=== PATIENT | male | born 1935 | race Caucasian/White ===

== ENCOUNTER 2021-07-25 12:35 | Outpatient (CLI) | payer OTHER, MEDICARE ==
[2021-07-25] MEDS ORDERED: Iopamidol 370 76% 100 ML VIAL ONE (15:18)
== END 2021-07-25 12:36 | disposition home or self-care (01) ==
LOC: CSHCT 12:35
DX: I26.99 Other pulmonary embolism without acute cor pulmonale (principal); I71.2 Thoracic aortic aneurysm, without rupture; J98.4 Other disorders of lung
CPT/HCPCS: 71275; 82565; Q9967

== ENCOUNTER 2021-09-27 15:35 | Outpatient (CLI) | payer OTHER, MEDICARE | END 2021-09-27 15:36 | disposition home or self-care (01) | LOC: CSHRAD 15:35 | PROVIDERS: ATTEND Family Medicine | DX: R05.9 Cough, unspecified (principal) | CPT/HCPCS: 71046 ==

== ENCOUNTER 2022-05-18 16:04 | Emergency (ER) | payer MEDICARE, OTHER ==
[~2022-05-18 16:04] MED LIST: Iopamidol 370 76% 100 ML VIAL ONE
[2022-05-18 16:53] LABS: #Eosinphils 0.3 10x3/uL (0.0-0.5); #Monocytes 0.4 10x3/uL (0.0-1.1); #Neutrophils 7.2 10x3/uL (1.5-8.4); %Basophils 0.4 % (0.0-2.0); %Eosinophils 2.8 % (0.0-6.0); %Lymphocytes 9.4 % (18.0-47.0); %Monocytes 4.7 % (0.0-10.0); %Neutrophils 80.4 % (40.0-75.0); Hemoglobin 11.4 g/dL (13.5-17.5); Mean Corpuscular Hemoglobin 35.6 pg (27.0-33.0); Mean Corpuscular Volume 104.7 fl (81.2-95.1); Mean Platelet Volume 9.3 fl (7.4-10.4); Platelet Count 304 10x3/uL (150-450); RBC Distribution Width 12.5 % (11.5-14.5)
[2022-05-18 17:15] LABS: ALT (SGPT) 22 U/L (8-55); AST (SGOT) 23 U/L (5-34); Alkaline Phosphatase 97 U/L (40-110); Anion Gap 18 mmol/L (10-20); BUN (Urea Nitrogen) 24 mg/dL (8.4-25.7); Bilirubin, Total 0.3 mg/dL (0.2-1.2); Calc. Creatinine Clearance 0 mL/min (70-130); Calcium 9.2 mg/dL (7.8-10.44); Carbon Dioxide 23 mmol/L (23-31); Chloride 101 mmol/L (98-107); Estimated GFR 57; Globulin 2.5 g/dL (2.4-3.5); Glucose 150 mg/dL (83-110); Potassium 4.6 mmol/L (3.5-5.1); Protein, Total 6.5 g/dL (5.8-8.1); Sodium 137 mmol/L (136-145)
[2022-05-18] MEDS ORDERED: Ipratropium/Albuterol 3 ML NEB ONE (17:20)
== END 2022-05-18 19:29 | disposition home or self-care (01) ==
LOC: CSHERS 16:04
DX: I71.21 Aneurysm of the ascending aorta, without rupture (principal); D64.9 Anemia, unspecified; I82.401 Acute embolism and thrombosis of unspecified deep veins of right lower extremity; E78.00 Pure hypercholesterolemia, unspecified
CPT/HCPCS: 71045; 71275; 80053; 83880; 84484; 85025; 93005; 96372; J1650; J7620; Q9967

== ENCOUNTER 2022-06-27 11:37 | Emergency (ER) | payer OTHER ==
[2022-06-27 12:37] LABS: Actual Bicarbonate (HCO3v) 23 mEq/L (22-28); Base Excess -1.9 mEq/L (-2 - +2); Calcium, Ionized (venous) 1.16 mmol/L (1.16-1.32); Chloride (VBG) 100 mmol/L (98-106); Hemoglobin (Hb) 11.8 g/dL (12.6-17.4); Potassium (VBG) 3.97 mmol/L (3.70-5.30); Puncture Site Other Site; RapidComm Collect By CBN; Sodium 135.7 mmol/L (133-146); pH (venous) 7.37 (7.32-7.43)
[2022-06-27 12:50] LABS: Hemoglobin 10.9 g/dL (13.5-17.5); Mean Corpuscular HGB CONC 32.3 g/dL (32.0-36.0); Mean Corpuscular Hemoglobin 34.3 pg (27.0-33.0); Mean Platelet Volume 9.8 fl (7.4-10.4); Platelet Count 199 10x3/uL (150-450); RBC Distribution Width 13.1 % (11.5-14.5); Red Blood Cell (RBC) Count 3.18 10x6/uL (4.32-5.72); White Blood Cell (WBC) Count 4.1 10x3/uL (3.5-10.5)
[2022-06-27 12:56] LABS: MDiff Complete? YES
[2022-06-27 13:00] LABS: SARS-CoV-2 NAA Rapid Test Not Detected (NotDetected)
[2022-06-27 13:02] LABS: ALT (SGPT) 14 U/L (8-55); AST (SGOT) 20 U/L (5-34); Albumin 3.7 g/dL (3.4-4.8); Alkaline Phosphatase 78 U/L (40-110); Anion Gap 14 mmol/L (10-20); BUN (Urea Nitrogen) 24 mg/dL (8.4-25.7); Bilirubin, Total 0.3 mg/dL (0.2-1.2); Calc. Creatinine Clearance 0 mL/min (70-130); Calcium 8.9 mg/dL (7.8-10.44); Carbon Dioxide 26 mmol/L (23-31); Chloride 103 mmol/L (98-107); Estimated GFR 59; Globulin 2.2 g/dL (2.4-3.5); Glucose 96 mg/dL (83-110); Magnesium 1.9 mg/dL (1.6-2.6); Potassium 4.3 mmol/L (3.5-5.1); Protein, Total 5.9 g/dL (5.8-8.1); Sodium 139 mmol/L (136-145)
[2022-06-27 13:07] LABS: Band 4 % (5-11); Eosinophils 3 % (0-10); Lymphocytes 23 % (21-51); Monocytes 16 % (0-10); Neutrophil 54 % (42-75)
[2022-06-27 13:09] LABS: Macrocytosis SLIGHT = 6-15 cells (100X) (0-5/hpf); Platelet Morphology Comment Appears Adequate
== END 2022-06-27 14:24 | disposition home or self-care (01) ==
LOC: CSHERS 11:37
DX: R53.1 Weakness (principal); Z20.822 Contact with and (suspected) exposure to COVID-19; E78.00 Pure hypercholesterolemia, unspecified; I25.2 Old myocardial infarction
CPT/HCPCS: 36415; 71045; 80053; 82805; 83735; 83880; 84443; 84484; 85025; 85379; 93005

== ENCOUNTER 2022-10-24 08:55 | Outpatient (CLI) | payer OTHER | END 2022-10-24 08:56 | disposition home or self-care (01) | LOC: CSHCT 08:55 | DX: R63.4 Abnormal weight loss (principal); I82.90 Acute embolism and thrombosis of unspecified vein; K57.90 Diverticulosis of intestine, part unspecified, without perforation or abscess without bleeding; N28.1 Cyst of kidney, acquired; Z90.49 Acquired absence of other specified parts of digestive tract | CPT/HCPCS: 74177; 82565 ==

== ENCOUNTER 2023-05-27 10:11 | Emergency (ER) | payer OTHER ==
[2023-05-27] MEDS ORDERED: Enoxaparin 80 MG (0.8 mL) SYRINGE ONE (12:06)
== END 2023-05-27 12:16 | disposition home or self-care (01) ==
LOC: CSHERS 10:11
DX: I82.401 Acute embolism and thrombosis of unspecified deep veins of right lower extremity (principal)
CPT/HCPCS: 96372; J1650

== ENCOUNTER 2025-01-08 11:14 | Emergency (ER) | payer OTHER | END 2025-01-08 14:14 | disposition home or self-care (01) | LOC: CSHERS 11:14 | DX: S89.92XA Unspecified injury of left lower leg, initial encounter (principal); R03.0 Elevated blood-pressure reading, without diagnosis of hypertension; E78.00 Pure hypercholesterolemia, unspecified; I25.2 Old myocardial infarction; Z55.6 Problems related to health literacy; Z79.01 Long term (current) use of anticoagulants; Z79.899 Other long term (current) drug therapy; W01.10XA Fall on same level from slipping, tripping and stumbling with subsequent striking against unspecified object, initial encounter | CPT/HCPCS: 70450; 72125; 93005 ==